=== PATIENT | male | born 1950 | race Two or more races ===

== ENCOUNTER 2022-08-24 19:59 | Emergency (ER) | payer MEDICARE, MEDICAID ==
[~2022-08-24] VITALS: Ht 170.2 cm; Wt 87.0 kg
[2022-08-24 20:23] VITALS: BP 168/108
== END 2022-08-25 01:17 | disposition left against medical advice (07) ==
LOC: ER 19:59
DX: I10 Essential (primary) hypertension (principal); Z53.21 Procedure and treatment not carried out due to patient leaving prior to being seen by health care provider